=== PATIENT | female | born 1960 | race Caucasian/White ===

== ENCOUNTER 2019-07-14 16:29 | Observation (INO) | payer BC ==
--- OUTSIDE RECORDS SUMMARY | 2019-07-14 16:51 | XMS REPORT | Continuity of Care Document ---
:1960 External Reference #:[id number] Author Name Sb Wilson N.P. Address [address] [facility] [address] [place] [address] Care Team Providers Name Role Phone Dayanna Evans MD - Family Medicine Care Team Information Survey And Mapping Technician [phone] Problems Active Problems Provider Date Essential hypertension Nitza Cortez FNP Onset: 06/02/2013 Neck pain Nitza Cortez FNP Onset: 06/02/2013 Female climacteric state Nitza Cortez FNP Onset: 06/02/2013 Chronic frontal sinusitis Sb Wilson N.P. Onset: 01/03/2019 Chronic maxillary sinusitis Sb Wilson N.P. Onset: 01/03/2019 Mixed hyperlipidemia Sb Wilson N.P. Onset: 01/03/2019 Vitamin D deficiency Sb Wilson N.P. Onset: 01/03/2019 Abnormal glucose level Sb Wilson N.P. Onset: 01/03/2019 Social History Type Date Description Comments Sex Unknown ETOH Use Occasionally consumes alcohol Tobacco Use Start: Unknown Patient has never smoked Allergies, Adverse Reactions, Alerts Active Allergies Reaction Severity Comments Date Amoxicillin 06/02/2013 Medications Active Medications SIG Qnty Indications Ordering Date Provider Sulfamethoxazole/Trim 1 tab by mouth 14tabs H66.93 Dayanna Evans, 2018 ethoprim DS twice a day M.D. 800-160mg Tablets Fexofenadine HCL 1 by mouth every 30tabs J32.0 Dayanna Evans, 04/01/2019 180mg day M.D. Tablets Physical Therapy eval and treat for M54.12 Dayanna Evans, 02/14/2019 r hand M.D. radiculopathy, cervical OA, and ddd. Claritin 1 by mouth every 30tabs J32.1 Nathan Harshjarrod John, 11/26/2018 10mg Tablets day M.D. Benadryl Allergy 1-2 tab by mouth 60tabs J32.1 Nathan Harshjarrod John, 11/26/2018 25mg every night at M.D. Tablets bedtime as needed congestion Proair HFA 1 puff every 4 3units Nathan, Harshjarrod John, 12/29/2016 108(90Base) hours as needed M.D. mcg/Act Aerosol Vitamin D 1 po qd E55.9 Nathan Harshjarrod John, 06/09/2013 2000Unit M.D. Capsules History Medications Cephalexin 1 tab by mouth 45tabs J32.1 NathanHarsh batistajarrod John, 02/14/2019 - 500mg three times a M.D. 07/10/2019 Tablets day Immunizations CPT Code Status Date Vaccine Lot # [id number] Given 05/21/2016 Flu Vaccine Vital Signs Date Vital Result Comment 07/11/2019 10:55am BP Systolic 160 mmHg BP Diastolic 79 mmHg Height 66 inches 5'6" Weight 171.00 lb BMI (Body Mass Index) 27.6 kg/m2 Heart Rate 75 /min Respiratory Rate 16 /min 04/01/2019 12:46pm BP Systolic 118 mmHg BP Diastolic 68 mmHg Height 66 inches 5'6" Weight 165.00 lb BMI (Body Mass Index) 26.6 kg/m2 Heart Rate 92 /min Respiratory Rate 16 /min Results Description No Information Available Procedures Date Code Description Status 01/17/2019 10624 EKG Completed 07/27/2010 18007778 Colonoscopy Completed Medical Devices Description No Information Available Encounters Type Date Location Provider Dx Diagnosis Office Visit 07/11/2019 [facility] Sb Wilson, J32.1 Chronic frontal 11:00a N.P. sinusitis J32.0 Chronic maxillary sinusitis I10 Essential (primary) hypertension E78.2 Mixed hyperlipidemia E55.9 Vitamin D deficiency, unspecified R73.09 Other abnormal glucose M21.611 Bunion of right foot L25.5 Unspecified contact dermatitis due to plants, except food M54.12 Radiculopathy, cervical region M50.30 Other cervical disc degeneration, unsp cervical region H66.93 Otitis media, unspecified, bilateral J02.9 Acute pharyngitis, unspecified R05 Cough H81.313 Aural vertigo, bilateral Z68.26 Body mass index (BMI) 26.0-26.9, adult Office Visit 04/01/2019 1:00p [facility] Sb Wilson J32.1 Chronic frontal N.P. sinusitis J32.0 Chronic maxillary sinusitis I10 Essential (primary) hypertension E78.2 Mixed hyperlipidemia E55.9 Vitamin D deficiency, unspecified R73.09 Other abnormal glucose M21.611 Bunion of right foot L25.5 Unspecified contact dermatitis due to plants, except food M54.12 Radiculopathy, cervical region M50.30 Other cervical disc degeneration, unsp cervical region Z68.26 Body mass index (BMI) 26.0-26.9, adult Office Visit 02/14/2019 2:00p [facility] Sb Wilson J32.1 Chronic frontal N.P. sinusitis J32.0 Chronic maxillary sinusitis I10 Essential (primary) hypertension E78.2 Mixed hyperlipidemia E55.9 Vitamin D deficiency, unspecified R73.09 Other abnormal glucose B86 Scabies M21.611 Bunion of right foot L25.5 Unspecified contact dermatitis due to plants, except food M54.12 Radiculopathy, cervical region Z12.31 Encntr screen mammogram for malignant neoplasm of breast Z68.26 Body mass index (BMI) 26.0-26.9, adult Office Visit 01/17/2019 9:00a [facility] Sb Wilson J32.1 Chronic frontal N.P. sinusitis J32.0 Chronic maxillary sinusitis I10 Essential (primary) hypertension E78.2 Mixed hyperlipidemia E55.9 Vitamin D deficiency, unspecified R73.09 Other abnormal glucose B86 Scabies M21.611 Bunion of right foot L25.5 Unspecified contact dermatitis due to plants, except food Z00.01 Encounter for general adult medical exam w abnormal findings M54.12 Radiculopathy, cervical region Z68.26 Body mass index (BMI) 26.0-26.9, adult Z12.31 Encntr screen mammogram for malignant neoplasm of breast Assessments Date Code Description Provider 07/11/2019 J32.1 Chronic frontal sinusitis Sb Wilson, N.P. 07/11/2019 J32.0 Chronic maxillary sinusitis Sb Wilson, N.P. 07/11/2019 I10 Essential (primary) hypertension Sb Wilson, N.P. 07/11/2019 E78.2 Mixed hyperlipidemia Sb Wilson, N.P. 07/11/2019 E55.9 Vitamin D deficiency, unspecified Sb Wilson N.P. 07/11/2019 R73.09 Other abnormal glucose Sb Wilson N.P. 07/11/2019 M21.611 Bunion of right foot Sb Wilson, N.P. 07/11/2019 L25.5 Unspecified contact dermatitis due to plants, Sb Wilson , N.P. except food 07/11/2019 M54.12 Radiculopathy, cervical region Sb Wilson, N.P. 07/11/2019 M50.30 Other cervical disc degeneration, unspecified Sb Wilson, N.P. cervical region 07/11/2019 H66.93 Otitis media, unspecified, bilateral Sb Wilson N.P. 07/11/2019 J02.9 Acute pharyngitis, unspecified Sb Wilson, N.P. 07/11/2019 R05 Cough Sb Wilson, N.P. 07/11/2019 H81.313 Aural vertigo, bilateral Sb Wilson, N.P. 07/11/2019 Z68.26 Body mass index (BMI) 26.0-26.9, adult Sb Wilson N.P. 04/01/2019 J32.1 Chronic frontal sinusitis Sb Wilson N.P. 04/01/2019 J32.0 Chronic maxillary sinusitis Sb Wilson N.P. 04/01/2019 I10 Essential (primary) hypertension Sb Wilson N.P. 04/01/2019 E78.2 Mixed hyperlipidemia Sb Wilson, N.P. 04/01/2019 E55.9 Vitamin D deficiency, unspecified Sb Wilson N.P. 04/01/2019 R73.09 Other abnormal glucose Sb Wilson N.P. 04/01/2019 M21.611 Bunion of right foot Sb Wilson N.P. 04/01/2019 L25.5 Unspecified contact dermatitis due to plants, Sb Wilson , N.P. except food 04/01/2019 M54.12 Radiculopathy, cervical region Sb Wilson, N.P. 04/01/2019 M50.30 Other cervical disc degeneration, unspecified Sb Wilson N.PFavian cervical region 04/01/2019 Z68.26 Body mass index (BMI) 26.0-26.9, adult Sb Wilson N.P. 02/14/2019 J32.1 Chronic frontal sinusitis Sb Wilson N.P. 02/14/2019 J32.0 Chronic maxillary sinusitis Sb Wilson, N.P. 02/14/2019 I10 Essential (primary) hypertension Sb Wilson, N.P. 02/14/2019 E78.2 Mixed hyperlipidemia Sb Wilson, N.P. 02/14/2019 E55.9 Vitamin D deficiency, unspecified Sb Wilson, N.P. 02/14/2019 R73.09 Other abnormal glucose Sb Wilson, N.P. 02/14/2019 B86 Scabies Sb Wilson N.P. 02/14/2019 M21.611 Bunion of right foot Sb Wilson N.P. 02/14/2019 L25.5 Unspecified contact dermatitis due to plants, Sb Wilson N.P. except food 02/14/2019 M54.12 Radiculopathy, cervical region Sb Wilson N.P. 02/14/2019 Z12.31 Encounter for screening mammogram for Siddhartha West.Ras malignant neoplasm of 02/14/2019 Z68.26 Body mass index (BMI) 26.0-26.9, adult Sb Wilson N.P. 01/17/2019 J32.1 Chronic frontal sinusitis Sb Wilson N.P. 01/17/2019 J32.0 Chronic maxillary sinusitis Sb Wilson, N.P. 01/17/2019 I10 Essential (primary) hypertension Sb Wilson, N.P. 01/17/2019 E78.2 Mixed hyperlipidemia Sb Wilson, N.P. 01/17/2019 E55.9 Vitamin D deficiency, unspecified Sb Wilson N.P. 01/17/2019 R73.09 Other abnormal glucose Sb Wilson N.P. 01/17/2019 B86 Scabies Sb Wilson N.P. 01/17/2019 M21.611 Bunion of right foot Sb Wilson N.P. 01/17/2019 L25.5 Unspecified contact dermatitis due to plants, Sb Wilson N.P. except food 01/17/2019 Z00.01 Encounter for general adult medical Sb Wilson N.P. examination with abnorma 01/17/2019 M54.12 Radiculopathy, cervical region Sb Wilson N.P. 01/17/2019 Z68.26 Body mass index (BMI) 26.0-26.9, adult Sb Wilson N.P. 01/17/2019 Z12.31 Encounter for screening mammogram for Sb Wilson N.P. malignant neoplasm of Plan of Treatment 07/11/2019 - Sb Wilson N.P.J32.1 Chronic frontal sinusitisComments:USE ANTIHISTAMINE PRN INCREASE PO FLUID / TYLENOL OR MOTRIN PRNJ32.0 Chronic maxillary sinusitisComments:INCREASE FLUIDSGARGLE WARM SALT H20F/U WITH ENT PRNDECONGESTANT AND ANTIHISTAMINES PRNTYLENOL OR MOTRIN PRNI10 Essential ( primary) hypertensionComments:CHECK BP TIW ( PRN)DIET AND FLUID COUNSELING LOW SODIUM DIETWT LOSSF/U LABE78.2 Mixed hyperlipidemiaComments:DIET REVIEWED CONTINUE DIETWT LOSSF/U LAB FBWE55.9 Vitamin D deficiency, unspecifiedComments: INCREASE EXPOSURE TO SUNREVIEW OF DIETR73.09 Other abnormal glucoseComments:F/U HGAICFS QAC AN HS PRNLOW GLUCOSE DIETM21.611 Bunion of right footComments: EXERCISE/HEAT/MESSAGETYLENOL OR MOTRIN PRNUSE WIDE SHOESCOVER WITH GEL BANDAID FOR PYOAAPIHPOE83.5 Unspecified contact dermatitis due to plants, except foodComments:TJEFNKCUJ38.12 Radiculopathy, cervical regionComments:EXERCISE/ HEAT /MESSAGEAVOID HEAVY LIFTING WT LOSSTYLENOL OR MOTRIN PRNM50.30 Other cervical disc degeneration, unspecified cervical regionComments:EXERCISE/HEAT / MESSAGEAVOID HEAVY LIFTING WT LOSSTYLENOL OR MOTRIN PRNH66.93 Otitis media, unspecified, bilateralNew Medication:Sulfamethoxazole/Trimethoprim DS 800-160 mg - 1 tab by mouth twice a dayComments:INCREASE PO FLUID TYLENOL OR MOTRIN PRN ANTIHISTAMINE PRNJ02.9 Acute pharyngitis, unspecifiedComments:INCREASE PO FLUIDTYLENOL OR MOTRIN PRNREST WARM FLUIDS/COLD WHICH EVER MAKES THROAT FEEL BETTERSUCRETS DIRECTED CALL IF SYMPTOMS WORSEN F/U [id number] CoughComments:INCREASE CLEAR LIQUIDSSTEAMGARGLE WARM SALT H2O TID ROBITUSSIN DM PRNH81.313 Aural vertigo, bilateralComments:CJJXYNKBZLKXJPJ78.26 Body mass index (BMI) 26.0-26.9, adultComments:DIET EXERCISE AND WEIGHT LOSS Functional Status Functional Condition Comment Date Status Glasses Active Bifocal glasses Active Mental Status Description No Information Available Referrals Refer to Reason for Referral Status Appt Date Manolo Navarro MD Closed 05/04/2019 [address] [place] [address] [phone] Abril Cortes DPM Closed [address] [place] [address] [phone]
--- NOTE | 2019-07-14 17:04 | ED ---
Dizziness - HPI Summary HPI Summary: This patient is a 59 year old female brought in by EMS presenting to [facility] with a chief complaint of dizziness. She originally had dizziness and nausea this weekend and was seen at PCP Thursday and prescribed bactrim for bilateral ear infections. Today, she had more dizziness and was unable to stand, while still nauseous. She states the PCP thought she had flu symptoms. She describes her dizziness as both lightheadedness and room spinning. She reprots sore throat. She states she experienced numbness down her right side when she was standing several hours ago. Her PCP noted she had elevated blood pressure around 160 systolic. Her BP in the ED is currently 163/106. Pt denies any fever, chills, erythema of eyes, CP, SOB, cough, abdominal pain, vomiting, dysuria, hematuria, myalgia, edema, or rash. - History Of Current Complaint Chief Complaint: EDDizziness Stated Complaint: DIZZY PER EMS Time Seen by Provider: 07/14/19 16:38 Hx Obtained From: Patient Character: Room Spinning, Lightheaded Associated Signs And Symptoms: Positive: Nausea - Allergies/Home Medications Allergies/Adverse Reactions: Allergies Allergy/AdvReac Type Severity Reaction Status Date / Time amoxicillin Allergy Diarrhea Verified 07/14/19 16:46 Home Medications: Home Medications Sulfamethox/Trimethoprim DS* [Bactrim DS 800/160 TAB*] 1 tab PO BID 07/14/19 [ History Confirmed 07/14/19] PMH/Surg Hx/FS Hx/Imm Hx Endocrine/Hematology History: Denies: Hx Diabetes, Hx Thyroid Disease Cardiovascular History: Reports: Hx Hypertension - NOT MEDICATED Denies: Hx Pacemaker/ICD Respiratory History: Denies: Hx Asthma, Hx Chronic Obstructive Pulmonary Disease (COPD) GI History: Denies: Hx Ulcer Sensory History: Denies: Hx Hearing Aid Psychiatric History: Denies: Hx Panic Disorder - Cancer History Hx Chemotherapy: No Hx Radiation Therapy: No - Surgical History Surgery Procedure, Year, and Place: D&C x 3,SINUS SEPTOPLASTY Infectious Disease History: No Infectious Disease History: Denies: Hx Hepatitis, Hx Human Immunodeficiency Virus (HIV), Traveled Outside the [place] in Last 30 Days - Family History Known Family History: Negative: Cardiac Disease, Hypertension - Social History Alcohol Use: Rare Substance Use Type: Reports: None Smoking Status (MU): Never Smoked Tobacco Review of Systems Negative: Fever, Chills Negative: Erythema Positive: Sore Throat Negative: Chest Pain Negative: Shortness Of Breath, Cough Positive: Nausea. Negative: Abdominal Pain, Vomiting Negative: dysuria, hematuria Negative: Myalgia, Edema Negative: Rash Neurological: Other - Dizziness Positive: Numbness All Other Systems Reviewed And Are Negative: No Physical Exam - Summary Physical Exam Summary: Constitutional: Well-developed, Well-nourished, Alert. (-) Distressed Skin: Warm, Dry HENT: Normocephalic; Atraumatic Eyes: Conjunctiva normal Neck: Musculoskeletal ROM normal neck. (-) JVD, (-) Stridor, (-) Tracheal deviation Cardio: Rhythm regular, rate normal, Heart sounds normal; Intact distal pulses; Radial pulses are 2+ and symmetric. (-) Murmur Pulmonary/Chest wall: Effort normal. (-) Respiratory distress, (-) Wheezes, (-) Rales Abd: Soft, (-) tenderness, (-) Distension, (-) Guarding, (-) Rebound Musculoskeletal: (-) Edema Lymph: (-) Cervical adenopathy Neuro: Alert, Oriented x3. Strength normal, Cranial nerves II-XII are grossly intact. (-) Dysmetria, (-) Nystagmus, (-) Ataxia by finger to nose testing, (-) Sensory deficit. Psych: Mood and affect Normal Triage Information Reviewed: Yes Vital Signs On Initial Exam: Initial Vitals Temp Pulse Resp BP Pulse Ox 98.2 F 81 17 163/106 95 07/14/19 16:34 07/14/19 16:34 07/14/19 16:34 07/14/19 16:34 07/14/19 16:34 Vital Signs Reviewed: Yes Procedures - Sedation Patient Received Moderate/Deep Sedation with Procedure: No Diagnostics - Vital Signs Vital Signs Temp Pulse Resp BP Pulse Ox 07/14/19 16:44 86 17 163/106 95 07/14/19 16:39 79 95 07/14/19 16:34 98.2 F 81 17 163/106 95 - Laboratory Lab Statement: Any lab studies that have been ordered have been reviewed, and results considered in the medical decision making process. - CT Brain CT Interpretation Completed By: Radiologist Summary of CT Findings: No acute intracranial abnormality by CT. ED provider has reviewed this report. - EKG 1658 Cardiac Rate: NL - 75 BPM EKG Rhythm: Sinus Rhythm Summary of EKG Findings: No STEMI. ED Physician has reviewed and interpreted this report. Re-Evaluation - Re-Evaluation First Eval Re-Evaluation Time: 19:25 Comment: Patient feels better. Her BP is 140 systolic. She is awaiting ambulation. Dizzy Course/Dx - Course Course Of Treatment: This patient is a 59 year old female brought in by EMS presenting to [facility] with a chief complaint of dizziness. The patient was hypertensive in the room. She was administered Lopressor and Cetriaxone sodium. Dr. Everett, Hospitalist, accepted the patient for admission. This plan was discussed with the pateint and she was agreeable with this plan. - Diagnoses Provider Diagnoses: TIA (transient ischemic attack), Hypertensive crisis, Dizziness Discharge ED - Sign-Out/Discharge Documenting (check all that apply): Patient Departure - Admission - Discharge Plan Condition: Stable Disposition: ADMITTED TO [facility] Referrals: Dayanna Evans MD [Primary Care Provider] - - Attestation Statements Document Initiated by Scribe: Yes Documenting Scribe: Layo Chan Provider For Whom Scribe is Documenting (Include Credential): Arnold William MD Scribe Attestation: Layo Romero, scribed for Arnold William MD on 07/14/19 at 1933. Status of Scribe Document: Ready
[2019-07-14 17:07] LABS: Urine Appearance Clear; Urine Bilirubin Negative (Negative); Urine Blood Negative (Negative); Urine Color Straw; Urine Glucose Negative (Negative); Urine Ketones Negative (Negative); Urine Nitrite Negative (Negative); Urine Protein Negative (Negative); Urine Specific Gravity 1.011 (1.010-1.030); Urine Urobilinogen Negative (Negative)
[2019-07-14] MEDS ORDERED: Metoprolol Tartrate IV* 1 MG/ML 5 ML VIAL IV ONE (17:11)
[2019-07-14 17:16] LABS: Urine Bacteria Absent (Absent); Urine Red Blood Cell Trace(0-2/hpf) (Absent); Urine Squamous Epithelial Cell Present (Absent); Urine White Blood Cell 1+(6-10/hpf) (Absent)
[2019-07-14 17:23] LABS: ABS Eosinophils 0.1 10^3/ul (0-0.6); ABS Lymphocytes 1.6 10^3/ul (1.0-4.8); ABS Monocytes 0.4 10^3/ul (0-0.8); ABS Neutrophils 4.3 10^3/ul (1.5-7.7); Hematocrit 42 % (35-47); Hemoglobin 14.6 g/dL (12.0-16.0); Lymphocyte % 24.4 %; Mean Corpuscular HGB Conc 35 g/dL (31-36); Mean Corpuscular Hemoglobin 30 pg (27-31); Mean Corpuscular Volume 87 fL (80-97); Mean Platelet Volume 7.7 fL (7.4-10.4); Platelet Count 278 10^3/uL (150-450); Red Blood Count 4.87 10^6 /uL (3.70-4.87); Red Cell Distribution Width 14 % (10-15); White Blood Count 6.5 10^3/uL (3.5-10.8)
[2019-07-14 17:40] LABS: Albumin 4.5 g/dL (3.2-5.2); Albumin/Globulin Ratio 1.7 (1-3); BUN/Creatinine Ratio 14.7 (8-20); Calcium 9.4 mg/dL (8.6-10.3); EGFR African American 62.4 (>60); EGFR Non-African American 51.6 (>60); Globulin 2.6 g/dL (2-4); Magnesium 2.2 mg/dL (1.9-2.7); Potassium 4.1 mmol/L (3.5-5.0); Total Bilirubin 0.3 mg/dL (0.2-1.0); Total Protein 7.1 g/dL (6.4-8.9)
[2019-07-14 18:11] LABS: TSH (Thyroid Stimulating Horm) 1.87 mcIU/mL (0.34-5.60)
[2019-07-14] MEDS ORDERED: cefTRIAXone(*) 1 GM in NS 0.9% 50 ML* 50 ML IVPB ONE (19:20)
[2019-07-14] MEDS ORDERED: Aspirin 81 mg CHEW TAB* 81 MG TAB.CHEW PO ONE (21:36)
[2019-07-14] MEDS ORDERED: Iodixanol* (CONTRAST) 320 MG/ML 100 ML SDV IV ONE (21:44)
[2019-07-14] MEDS: Acetaminophen TAB* 325 MG PO PRN (23:03)
--- NOTE | 2019-07-15 01:19 | HP ---
CC: Dr. Wilson * HISTORY AND PHYSICAL: DATE OF ADMISSION: 07/14/19 PROVIDER: Maggie Oneal NP PRIMARY CARE PROVIDER: Dr. Wilson. ATTENDING PHYSICIAN WHILE IN THE HOSPITAL: Dr. Johanne Everett * (dictated by Maggie Oneal NP) CHIEF COMPLAINT: Dizziness, right facial numbness. HISTORY OF PRESENT ILLNESS: Ms. Flores is a 59-year-old female with no significant past medical history who reports that on Thursday, she had an episode of dizziness while making cookies. She reports that she rested of the rest of the day and thought she was coming down with a sinus infection due to nasal congestion and frontal sinus pain. She followed up with her PCP on Thursday and was diagnosed with sinus infection and ear infection. At that time, she was started on Bactrim for the sinus infection. The patient reports that on Thursday , she stayed home from work and rested. On Thursday, she returned to work and was back at her baseline with no associated dizziness. The patient reports that she awoke this morning, got ready for work, was in her normal state of health. She reports arriving at work about 2 o'clock. She said she talked to her staff, they sat around and discussed their evening work duties. She reports that she went to her area where she was working and she was talking to the girls at work and she had a sudden onset of dizziness, which she describes as the room spinning around her. She does report that she became so dizzy that she sat on the ground and she felt like she was going to pass out and felt off balance. She also described some right facial numbness during this episode. She states that episode lasted approximately 30 minutes. This occurred approximately at 2:45 today. She denied any associated visual changes. She did report some associated nausea. She denies any slurred speech or weakness on one side. The patient denies any recent fever, chills, chest pain, edema, cough , hemoptysis, or shortness of breath. She did report some associated nausea with episode of dizziness today. No diarrhea, abdominal pain, hematuria, dysuria. Denies any focal weakness. She did report numbness to the right face that lasted approximately 30 minutes and completely resolved and she denied any associated visual complaints or difficulty swallowing or difficulty with speech. No arthralgias, myalgias, rashes, lesions, open sores, psychosis or anxiety. While in the emergency room, the patient had routine lab work done. She had a CT of the brain, which showed no acute pathology. Due to her episode of dizziness, Hospital Medicine was asked to see and evaluate her for admission. PAST MEDICAL HISTORY: Significant for history of sinus infections. PAST SURGICAL HISTORY: Sinus surgery. HOME MEDICATIONS: None. ALLERGIES: AMOXICILLIN. FAMILY HISTORY: No reported history of coronary artery disease or stroke. Maternal grandmother with diabetes. The patient's mother passed from T cell lymphoma and sister passed from lung cancer at the age of 48. SOCIAL HISTORY: She denies any tobacco. She reports rare alcohol use. No illicit drug use. 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 She is . She lives with her , Jules. In the event she is unable to make her own decisions, her , Jules, is her surrogate decision maker. She is a full code. REVIEW OF SYSTEMS: A 14-point review of systems was completed, all pertinent positives are mentioned in the HPI. PHYSICAL EXAMINATION GENERAL: Ms. Flores is a 59-year-old female. She is alert and oriented, resting on the stretcher in the emergency room. She is in no acute distress. VITAL SIGNS: Blood pressure 124/71, heart rate 68, respirations are 21, O2 saturation 97%, temperature was 98.2. HEENT: Head is atraumatic, normocephalic. Eyes: EOMs are intact. Sclerae anicteric and not pale. Oral mucosa appeared to be moist. NECK: Supple. LUNGS: Clear to auscultation bilaterally. No wheezes, rales, or rhonchi. CARDIAC: S1, S2. Regular rate and rhythm. No murmurs, rubs, or gallops. ABDOMEN: Soft and nontender. Bowel sounds are present x4. EXTREMITIES: She is able to move all 4 extremities. There is no clubbing or cyanosis. SKIN: Intact. NEUROLOGIC: She is awake, alert and oriented x3. Speech is clear. Thought process is intact. Handgrips are equal. There is no pronator drift. Smile is equal. Tongue is midline. There is no facial asymmetry. There is no leg drift. Push/pull is intact. Handgrips are intact. Sensation is intact to all 4 extremities. She has no gross neuro deficits at this time. [id number] is also intact. Skin is intact. LABORATORY DATA AND DIAGNOSTIC STUDIES: CBC was within normal limits. WBCs are 6.5, RBC 4.87, hemoglobin 14.6, hematocrit was 42, platelet count was 278. Sodium was 138, potassium 4.1, chloride 107, carbon dioxide was 25, anion gap is 6, BUN was 16, creatinine 1.09. Magnesium 2.2, calcium 9.4. Lactic acid was 1.0, glucose was 115. ASTs were 19, ALTs were 13, alkaline phosphatase was 97. TSH was 1.87. Urine was within normal limits with the exception of leukocyte esterase was +1, wbc's were +1, rbc's were trace, squamous epithelial cells were present, bacteria was absent, glucose was negative. She had a CT of the brain, radiologist's impression: No acute intracranial abnormality by CT. She had an electrocardiogram, which showed sinus rhythm at a rate of 75. No ST or T wave changes. ASSESSMENT AND PLAN: Ms. Flores is a 59-year-old female with no significant past medical history who is recently diagnosed with sinusitis and urine infection, started on Bactrim on Thursday, who presented to the emergency room by EMS today for dizziness and right facial numbness. She will be admitted under observation for: 1. Dizziness: Right facial numbness. We will rule out TIA versus CVA. The patient did receive 324 mg of aspirin by EMS prior to arrival. We will continue her on aspirin 81 mg p.o. daily. She will have a lipid profile in the a.m. and be started on statin based on her risk factors. I did speak to Dr. Grimes from Neurology who will see the patient in consultation. I will get an MRI of the brain. She will have a CTA of the head and neck to rule out any acute abnormality. She will have neuro checks q.4 hours. At this time, the patient has no speech or swallowing deficits. There is no need for speech therapy at this time. She has no weakness or strength deficits. PT and OT are not needed at this time. 2. FEN: She can have a regular diet. 3. Code status: She is a full code. 4. DVT prophylaxis: I will place her on SCDs. TIME SPENT: Time spent on this admission was 60 minutes, greater than half that time was spent at the bedside reviewing events leading thus far to her hospitalization, performing my physical exam, and reviewing my plan of care. I have discussed this with my attending Dr. Johanne Everett; she is in agreement with my plan. MAGGIE ONEAL, GHAZAL [id number]/[facility] #: [id number] PAULA
[2019-07-15] MEDS: Acetaminophen TAB* 325 MG PO PRN (06:16)
[2019-07-15 06:48] LABS: ABS Eosinophils 0.1 10^3/ul (0-0.6); ABS Lymphocytes 2.5 10^3/ul (1.0-4.8); ABS Monocytes 0.6 10^3/ul (0-0.8); ABS Neutrophils 3.2 10^3/ul (1.5-7.7); Eosinophil % 1.4 %; Hematocrit 42 % (35-47); Hemoglobin 14.3 g/dL (12.0-16.0); Lymphocyte % 38.6 %; Mean Corpuscular HGB Conc 34 g/dL (31-36); Mean Corpuscular Hemoglobin 30 pg (27-31); Mean Corpuscular Volume 88 fL (80-97); Mean Platelet Volume 8.2 fL (7.4-10.4); Platelet Count 270 10^3/uL (150-450); Red Blood Count 4.79 10^6 /uL (3.70-4.87); Red Cell Distribution Width 14 % (10-15); White Blood Count 6.4 10^3/uL (3.5-10.8)
[2019-07-15 07:13] LABS: BUN/Creatinine Ratio 11.2 (8-20); Calcium 9.2 mg/dL (8.6-10.3); EGFR African American 70.5 (>60); EGFR Non-African American 58.3 (>60); HDL Cholesterol 47.3 mg/dL; Potassium 3.9 mmol/L (3.5-5.0)
[2019-07-15] MEDS ORDERED: Aspirin 81 mg CHEW TAB* 81 MG TAB.CHEW PO SCH (09:00)
--- NOTE | 2019-07-15 10:35 | ECHO ---
*[facility]* [place] [address] Fax #: [phone] Transthoracic Echocardiogram Patient: Keira Flores : 1960 Study Date: 07/15/2019 Age: 59 Gender: F HR: 61 bpm Height: 66 in /167.6 cm BSA: 1.87 m^2 Weight: 170.6 lb /77.6 kg BMI: 27.6 kg/m^2 *Fundraising Director: * Brandee Navarrete [facility] *Referring Physician: * Maggie Oneal *Reading Physician: * Teo Chong MD Indications: TIA. History: No known cardiac history. Conclusions Summary: - Left ventricle: The cavity size is normal. Wall thickness is mildly increased. Systolic function is normal. The estimated ejection fraction is 60-65%. Wall motion is normal; there are no regional wall motion abnormalities. - Right ventricle: The cavity size is normal. Systolic function is normal. Systolic pressure is within the normal range. - Left atrium: The atrium is normal in size. - Atrial septum: Negative Bubble Study. Images 64 and 65. - Mitral valve: Borderline prolapse of posterior mitral leaflet with trace regurgitation. - Aortic root: The aortic root is mildly dilated. - Ascending aorta: The ascending aorta is mildly dilated. Recommendations: None prior for comparison at time of interpretation. Study data: Transthoracic echocardiogram. Procedure: Transthoracic echocardiography was performed. Image quality was good. A bubble study was performed. Complete 2D, spectral Doppler, and color flow Doppler. Location: Bedside. Patient status: Inpatient. Patient room number: 442-01. Rhythm: Normal sinus rhythm. Findings Left ventricle: The cavity size is normal. Wall thickness is mildly increased. Systolic function is normal. The estimated ejection fraction is 60-65%. Wall motion is normal; there are no regional wall motion abnormalities. Doppler parameters are consistent with abnormal left ventricular relaxation (grade 1 diastolic dysfunction). Right ventricle: The cavity size is normal. Systolic function is normal. Systolic pressure is within the normal range. Left atrium: The atrium is normal in size. Right atrium: The atrium is normal in size. Atrial septum: A PFO is not demonstrated by color Doppler or agitated saline contrast. Negative Bubble Study. Images 64 and 65. Mitral valve: The leaflets are mildly thickened. There is no evidence of stenosis. Borderline prolapse of posterior mitral leaflet with trace regurgitation. Aortic valve: The valve is trileaflet. The leaflets are mildly thickened. There is no evidence of stenosis. There is trace regurgitation. Tricuspid valve: The leaflets are normal thickness. There is no evidence of stenosis. There is trace regurgitation. Pulmonic valve: The leaflets are normal thickness. There is no evidence of stenosis. There is trace regurgitation. Aorta: Aortic root: The aortic root is mildly dilated. Ascending aorta: The ascending aorta is mildly dilated. Aortic arch: The aortic arch is appears normal. Pericardium: There is no significant pericardial effusion. Pulmonary arteries: The main pulmonary artery is normal-sized. Systolic pressure is within the normal range. Systemic veins: Inferior vena cava: The vessel is normal in size. There is (>= 50%) respiratory change in the IVC dimension. Measurements Left ventricle Value Ref Aortic valve Value Ref DORA, LAX (L) 3.7 cm 3.8 - 5.2 Lalito diam, ED 1.9 cm ----- ESD, LAX 2.6 cm 2.2 - 3.5 Peak v, S 0.98 m/sec ----- FS, LAX 30 % 27 - 45 VTI, S 24.3 cm ----- PW, ED, LAX (H) 1.0 cm 0.6 - 0.9 Mean grad, S 2.0 mm Hg ----- FS 30 % 27 - 45 Peak grad, S 4.0 mm Hg ----- PW, ED (H) 1.0 cm 0.6 - 0.9 LVOT/AV, VTI ratio 0.58 ----- E', lat lalito, TDI (L) 6.4 cm/sec >=10.0 E/e', lat lalito, 12 Mitral valve Value Ref TDI Peak E 0.76 m/sec ----- E', med lalito, TDI (L) 6.3 cm/sec >=7.0 Peak A 0.89 m/sec --- -- E/e', med lalito, 12 Decel time 268 ms ----- TDI Peak grad, D 2.3 mm Hg ----- E', avg, TDI 6.4 cm/sec Peak E/A ratio 0.9 ----- E/e', avg, TDI 12 <=14 Pulmonic valve Value Ref LVOT Value Ref Peak v, S 0.69 m/sec ----- Peak ana, S 0.73 m/sec Peak grad, S 2.0 mm Hg ----- VTI, S 14.0 cm Mean grad, S 1 mm Hg Tricuspid valve Value Ref TR peak v 2.1 m/sec <=2.8 Ventricular septum Value Ref Peak RV-RA grad, S 18 mm Hg ----- IVS, ED (H) 1.2 cm 0.6 - 0.9 Aortic root Value Ref Right ventricle Value Ref Root diam 3.5 cm <4.0 DORA, LAX 3.6 cm DORA minor ax, A4C 2.4 cm 1.9 - 3.5 Ascending aorta Value Ref mid AAo AP diam, S 3.6 cm ----- Pressure, S 21 mm Hg Aortic arch Value Ref Left atrium Value Ref Arch diam 2.9 cm ----- AP dim, ES 2.70 cm 2.70 - 3.80 Decending aorta Value Ref ML dim, A4C 4.1 cm Vani peak ana 0.61 m/sec ----- SI dim, A4C 3.5 cm Vol/bsa, ES, 1-p 14 ml/m^2 11 - 40 Pulmonary artery Value Ref A4C Pressure, S 19.0 mm Hg ----- Vol/bsa, ES, A/L 19 ml/m^2 16 - 34 Inferior vena cava Value Ref Right atrium Value Ref Diam 1.3 cm ----- SI dim, ES 4.4 cm 3.4 - 5.3 ML dim, ES, A4C 3.1 cm 2.6 - 4.4 Estimated RAP 3 mm Hg Legend: (L) and (H) [place] values outside specified reference range. Prepared and electronically signed by Teo Chong MD 07/15/2019 10:35
[2019-07-15] MEDS ORDERED: Sulfamethox/Trimethoprim DS 800/160* TAB PO SCH (11:00)
--- NOTE | 2019-07-15 14:58 | CONS ---
CC: Dr. Evans* NEUROLOGY CONSULTATION: DATE OF CONSULT: 07/15/19 LOCATION: She is an inpatient in room 442. REFERRING PROVIDER: Maggie Oneal NP CHIEF COMPLAINT: Dizziness. HISTORY OF PRESENT ILLNESS: Keira Flores is a 59-year-old woman who was in her usual state of health last Thursday when she had an episode of dizziness. She gets it periodically and she has attributed to prior sinus problems including sinus surgery. She rested, but the next day she continued to have some dizziness and also some pressure in the bridge of her nose and so she saw her primary care provider, who prescribed Bactrim for presumptive sinus infection. She felt better the next day, but rested. Over the course of the week, she felt pretty well, but then the day of admission, yesterday, she went to work. While at work, she felt somewhat dizzy. She went to empty some trash cans and she felt extremely dizzy with the room spinning and did not feel that she could stand and had to sit down. She has some intermittent numbness in her right hand that has been attributed in the past to cervical radiculopathy that became more intensified. She felt nauseous. Co-workers called application development director and she was brought into the emergency room. In the emergency room, she was hypertensive. The intense dizziness lasted about 30 minutes and resolved. She was given some metoprolol once in the emergency room. She was also given aspirin , which she does not take on a regular basis. She was admitted. Today, she feels well. She does not feel dizzy today. Maggie Oneal elicited a history of numbness of the face. I asked Keira if she had any numbness yesterday of the face or just the arm and leg and today she only recalls having numbness of her arm and perhaps to a lesser extent her right leg. She feels steady on her feet today. She does not have a headache today. PAST MEDICAL HISTORY: Notable for sinus surgery, otherwise good health. MEDICATIONS: She does not take any medications at home on a regular basis. ALLERGIES: She is allergic to AMOXICILLIN. FAMILY HISTORY: Notable for her sister dying with lung cancer at age 48 and mother from lymphoma. SOCIAL HISTORY: She does not smoke, rarely drinks alcohol, works at [employer], lives with her . REVIEW OF SYSTEMS: Negative for hypertension, diabetes, smoking, alcohol abuse , or frequent headaches. She has not had any recent falls. There has been no recent weight loss, fevers, or chills. There is no history of endocrine disease. She works at [employer]. There is no history of recent head trauma. PHYSICAL EXAM: She is well nourished and well hydrated. Temperature 98.2, blood pressure most recently is just 99/51, her heart rates in the 70s and seems regular. Respiratory rate is 20 and oxygen saturation is 96% on room air. Heart tones are normal and there are no murmurs. There are no cervical bruits. Oral mucosa is moist and atraumatic. Lungs are clear. Neurological Exam: Pupils react equally from 4 down to 2 mm. There is no ptosis. Funduscopic exam is normal bilaterally. Eye movements are full and there is no nystagmus. Visual vital are full to confrontation. Facial sensation is intact to light touch. Hearing is intact. Speech is clear without dysarthria. Motor exam reveals normal muscle tone and strength proximally and distally in upper and lower extremities. There is no spasticity in limbs. There is no rest, sustention or action tremor. [id number] maneuver is normal bilaterally. [id number] maneuver is normal other than some limitation of range of motion about the left hip. Romberg sign is absent. Standard gait is normal. She is able to perform a tandem gait. Sensory exam in the limbs is intact to light touch and pin. Reflexes are hypoactive, but present in the upper extremities, grade 2 at the knees and ankles. Plantar responses are flexor bilaterally. She is alert and oriented and excellent detailed historian. Memory is intact and language is fluent. She has adequate attention, concentration, and fund of knowledge. DIAGNOSTIC STUDIES/LAB DATA: Laboratory data includes a normal chemistry profile other than nonfasting glucose yesterday of 115. Cholesterol this morning is 193 and LDL 122. TSH is normal at 1.87. CBC is normal. Other data includes a CT angiogram of the head from yesterday interpreted as showing persistence of origin of the right posterior cerebral artery. There is felt to be stenosis of M3 segments of the left middle cerebral artery, but no stenosis of the M1 segment. CTA of the extracranial vasculature was interpreted showing 50% stenosis of the proximal left common carotid artery which could be due to tortuosity of the vessel. There was also felt to be mild stenosis of the V2 segment of the right vertebral artery. I reviewed the images and I agree. MRI of the brain was reviewed as well. There is artifact obscuring details in the frontal lobes bilaterally. There is no evidence of remote or recent infarctions. IMPRESSION AND PLAN: Impression is that of probable peripheral vestibular disease. I think she probably has paroxysmal positional vertigo. I did do a Vanderpool -Hallpike in her hospital bed and did not illicit vertigo or nystagmus. However , it was limited because she developed some neck pain and stiffness and so I did not keep her in the head-lying position very long. I think this is probably peripheral vestibular disease and I do not think she needs any specific treatment for cerebrovascular disease. Her blood pressure was elevated when she came in, but then it came down. Her has a blood pressure monitor at home and he says he will make sure that they check at home routinely and report back to her primary care provider. I told her if she has recurrent vertigo after she returns home, to call my office and I will arrange for reevaluation and possibly referral for vestibular therapy. [id number]/[facility] #: [id number] PAULA
[2019-07-15 15:10] VITALS: BP 125/73
--- NOTE | 2019-07-15 20:47 | DS ---
CC: Dr. Wilson; Dr. Grimes* DISCHARGE SUMMARY: DATE OF ADMISSION: 07/14/19 DATE OF DISCHARGE: 07/15/19 PRIMARY CARE PROVIDER: Dr. Wilson. OTHER PROVIDER: Dr. Grimes. ATTENDING PHYSICIAN: Dr. Gomez* (dictated by RUPALI Vee). DISCHARGE DIAGNOSES: 1. Vertigo likely due to benign paroxysmal positional vertigo in the setting of left ear infection. 2. Dyslipidemia. SECONDARY DIAGNOSIS: Recent diagnosis of inner ear infection, treated with Bactrim. STUDIES WHILE IN THE HOSPITAL: 1. CT brain without, impression: No acute intracranial abnormality by CT. 2. MRI brain without, impression: Artifact limits the evaluation of the frontal lobes on diffusion. Otherwise, there is no restricted diffusion within the brain to suggest an acute infarct. There is an empty sella, paranasal sinus disease. Additional findings described above. 3. CTA head and neck, impression: Stenosis are visualized of M3 segments of the left middle cerebral artery. Persistence of origin of the right posterior cerebral artery. No stenosis or occlusion of the extracranial internal carotid arteries bilaterally. Approximately 50% stenosis of the proximal left common carotid artery. This can be contributed by tortuosity of the vessel. Mild stenosis of the V2 segment of the right vertebral artery distally. 4. Transthoracic echocardiogram. LV cavity size normal. Wall thickness mildly increased. Systolic function normal. Estimated EF 60% to 65%. Wall motion normal. No regional wall motion abnormalities. RV cavity size normal. Systolic function normal. Systolic pressure within normal range. Left atrium normal in size. Atrial septum negative bubble study. Borderline prolapse of posterior mitral valve leaflets with trace regurgitation. Aortic root mildly dilated. Ascending aorta mildly dilated. DISCHARGE MEDICATIONS: Home medication: Bactrim DS 800/160 one tab p.o. b.i.d. Medication changes: None. New home medications: None. HISTORY OF PRESENT ILLNESS/HOSPITAL COURSE: Ms. Flores is a 59-year-old female with a past medical history of recently diagnosed inner ear infection which was diagnosed on Thursday after a reported episode of dizziness on Thursday. She then experienced return of sudden onset dizziness on the day of admission, 07/14/19. 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 She notes that the dizziness lasted approximately 30 minutes. She had no other symptoms at that time and this resolved on its own. She arrived at the ER where a workup was initiated. A CT of the head was within normal limits. CTA of the head and neck showed stenosis of the cerebral artery and 58% stenosis of left common. MRI of the brain revealed no acute abnormalities. Neurology was consulted and their suspicion was that this vertigo was related to her inner ear infection and should resolve with continued treatment. Dr. Grimes requested that the patient follow up with Neurology if symptoms recur. During the patient's stay, a blood work was obtained. Hemoglobin A1c was within normal limits at 5.5. Lipid panel was obtained and revealed triglycerides 120, cholesterol 193, LDL 122, HDL 47.3, discussion was had and the patient would like to trial diet and exercise in order to lower cholesterol levels and will follow up with her primary care provider. At the time of discharge, the patient continues to deny dizziness. She denies lightheadedness, loss of consciousness, difficulty speaking or swallowing, muscle weakness, and notes that she has not had this currently or in the past. In the recent past, she does complain of right fourth digit numbness and associated tingling of the arm which she notes is chronic and due to a pinched nerve in the neck. Ms. Flores is stable for discharge. PHYSICAL EXAMINATION: Vital Signs: Temperature 97.8 oral, heart rate 69, respiratory rate 20, oxygen saturation 96% on room air, blood pressure 99/51. General: Ms. Flores is a well-developed, well-nourished, slightly overweight , middle aged white female who is lying flat in bed. She appears to be in no acute distress. She is pleasant, cooperative. HEENT: PERRL. Extraocular movements are intact. Visual vital are intact. Sclerae are nonicteric. Hearing is grossly intact. Oral mucous membranes are moist and without lesions. The pharynx is clear. The tongue is at midline and the palate elevates symmetrically. Cardiovascular: Regular rate and rhythm with S1, S2 present. There are no murmurs, rubs, clicks, or gallops. There is no JVD or peripheral edema. Pulmonary: Symmetrical chest expansion without use of accessory muscles. Clear to auscultation bilaterally without rhonchi, wheeze, or rales. Abdomen: Bowel sounds in all quadrants. Soft, nontender to palpation. Musculoskeletal: Full range of motion without pain or deformities. Neuro: The patient is awake. She is alert and oriented x3. Cranial nerves II through XII are grossly intact. She is able to move all of her extremities. Her motor strength is 5/5 bilaterally in the upper and lower extremities. Audit Spec strength is equal. DISCHARGE PLAN: Ms. Flores will be discharged to home. CONDITION: Good. DIET: Heart healthy/low fat. ACTIVITY: As tolerated. MEDICATIONS: No changes. EDUCATION: 1. Follow up with primary care provider in 4 to 7 days. 2. Discussed recent hospitalization. 3. LDL level of 122. 4. Follow up with Neurology, Dr. Grimes, as needed for recurrence of dizziness. 5. Return to the ER or nearest hospital if you experience any chest pain or discomfort, shortness of breath, dizziness, lightheadedness, loss of consciousness, high fevers, chills, night sweats or any other worrisome signs or symptoms. This is a summarized report of a complex medical history and hospital stay. For further details, please see the entire medical record. TIME SPENT: Approximately 30 minutes was spent on this discharge, greater than half that time was spent [id number] with the patient discussing discharge plans and instructions. RUPALI GARCIA [id number]/[facility] #: [id number] PAULA
== END 2019-07-15 15:30 | disposition home or self-care (01) ==
LOC: ED 16:29 → MEDTELE 21:45
PROVIDERS: ADMIT Nurse Practitioner; ATTEND Nurse Practitioner
DX: R42 Dizziness and giddiness (principal); E78.5 Hyperlipidemia, unspecified; R20.0 Anesthesia of skin; J02.9 Acute pharyngitis, unspecified; Z79.899 Other long term (current) drug therapy; R11.0 Nausea
CPT/HCPCS: 36415; 70450; 70496; 70498; 70551; 80048; 80053; 80061; 81003; 81015; 83036; 83605; 83735; 84443; 84484; 85025; 87086; 93005; 93306; 96365; 96375; 99284; A9270-GY; G0378; J0696; J3490; Q9967